=== PATIENT | female | born 1990 ===

== ENCOUNTER 2017-12-15 20:13 | Emergency (ER) | payer MEDICAID ==
[2017-12-15 20:14] VITALS: BMI 29.6
[2017-12-15 20:29] VITALS: BP 123/76; PULSE 98; RESP 20; TEMP 99.8; O2SAT 96
--- NOTE | 2017-12-15 21:44 | C.PDOC ---
History Of Present Illness 27 y/o female presents to the ED with c/o 1 day of "on and off" fever associated with myaglias, dry cough, and rhinorrhea. Tmax was up to 103 as per patient. Otherwise she denies any nausea, vomiting, diarrhea, SOB, chest tightness, or sputum production. No sick contacts. HPI: Influenza Time Seen by Provider: 12/15/17 20:48 Chief Complaint: Flu-like Symptoms Chief Complaint (Provider): Flu-like Symptoms History Per: Patient Exam Limitations: no limitations Onset/Duration Of Symptoms: Days Symptoms include: fever, bodyaches, cough, nasal congestion Sick Contacts (Context): None Past Medical History Reviewed: Historical Data, Nursing Documentation, Vital Signs Vital Signs: Last Vital Signs Temp 99.8 F H 12/15/17 20:27 Pulse 98 H 12/15/17 20:27 Resp 20 12/15/17 20:27 BP 123/76 12/15/17 20:27 Pulse Ox 96 12/15/17 20:27 - [facility] Procedures BILAT TUBAL DESTRUCT NEC (08/11/13) INJECT RH IMMUNE GLOBUL (08/11/13) LOW CERVICAL (08/11/13) Family History: States: No Known Family Hx - Social History Hx Alcohol Use: No Hx Substance Use: No Review Of Systems Constitutional: Positive for: Fever, Other (Myaglias) ENT: Positive for: Nose Discharge, Nose Congestion Cardiovascular: Negative for: Chest Pain, Light Headedness Respiratory: Positive for: Cough. Negative for: Shortness of Breath, Sputum, Wheezing Gastrointestinal: Negative for: Nausea, Vomiting, Diarrhea Musculoskeletal: Negative for: Back Pain Neurological: Negative for: Headache, Dizziness Physical Exam - Physical Exam Appears: Non-toxic, No Acute Distress Skin: Normal Color, Warm, Dry Head: Normacephalic Eye(s): bilateral: PERRL Ear(s): Bilateral: Normal Nose: Discharge (+ clear rhinorrhea) Oral Mucosa: Moist Neck: Normal ROM, Supple Chest: Symmetrical Cardiovascular: Rhythm Regular, No Murmur Respiratory: Normal Breath Sounds, No Rales, No Rhonchi, No Wheezing Extremity: Bilateral: Atraumatic, Normal Color And Temperature Neurological/Psych: Oriented x3, Normal Speech Medical Decision Making Medical Decision Making: Impression: pt with fever, flu like symptoms body aches and rhinorrhea. Flu neg. Plan: d/c home with tylenol and claritin - ECG O2 Sat by Pulse Oximetry: 96 Disposition Counseled Patient/Family Regarding: Studies Performed, Diagnosis, Need For Followup, Rx Given - Disposition Referrals: Joshua Hunt MD [Staff Provider] - Disposition: HOME/ ROUTINE Disposition Time: 21:41 Condition: GOOD Additional Instructions: Drink increased fluids. Calritin to decrease nasal secretions Tylenol for fever and pain. Follow up with Dr Hunt in 2-3 days. Increase rest. Prescriptions: Acetaminophen [Tylenol 325mg tab] 650 mg PO Q4 #50 tab Loratadine [Claritin] 10 mg PO DAILY #14 tab Instructions: Flu, Adult (DC) Forms: General Discharge Instructions, [facility] ([place]), Work Excuse - Clinical Impression Clinical Impression: Influenza-like illness - PA / [employer] / Resident Statement MD/DO has reviewed & agrees with the documentation as recorded. - Scribe Statement The provider has reviewed the documentation as recorded by the Scribe (Edna Hilliard) All medical record entries made by the Scribe were at my direction and personally dictated by me. I have reviewed the chart and agree that the record accurately reflects my personal performance of the history, physical exam, medical decision making, and the department course for this patient. I have also personally directed, reviewed, and agree with the discharge instructions and disposition.
== END 2017-12-15 21:55 | disposition home or self-care (01) ==
LOC: C.ER 20:13
DX: J11.1 Influenza due to unidentified influenza virus with other respiratory manifestations (principal)

== ENCOUNTER 2018-04-16 21:02 | Emergency (ER) | payer SELFPAY ==
[2018-04-16 21:02] VITALS: BMI 29.6
[2018-04-16 21:26] VITALS: BP 128/88; PULSE 88; RESP 20; TEMP 98.8; O2SAT 98
--- NOTE | 2018-04-16 22:07 | C.PDOC ---
History Of Present Illness 27-year-old female, with no significant past medical history, presents to the ED for evaluation of flu-like symptoms for one day. Patient reports fever, chills, sore throat, headache, generalized body aches, dry cough, and sinus congestion. She denies getting the flu shot this season. Patient took Tylenol cold/flu prior to arrival with some relief. She denies abdominal pain, nausea, sputum production, dizziness, vision changes, neck pain/stiffness, back pain and chest pain. Time Seen by Provider: 04/16/18 21:41 Chief Complaint (Nursing): Flu-like Symptoms History Per: Patient History/Exam Limitations: no limitations Onset/Duration Of Symptoms: Hrs Current Symptoms Are (Timing): Still Present Location Of Pain: Throat, Diffuse Myalgias, Headache Associated Symptoms: Fever, Chills, Cough. denies: Sputum, Neck Pain, Nausea, Vomiting Additional History Per: Patient Past Medical History Reviewed: Historical Data, Nursing Documentation, Vital Signs Vital Signs: Last Vital Signs Temp 98.8 F 04/16/18 21:21 Pulse 88 04/16/18 21:21 Resp 20 04/16/18 21:21 BP 128/88 04/16/18 21:21 Pulse Ox 98 04/16/18 21:21 - Medical History PMH: No Chronic Diseases Surgical History: No Surg Hx - [facility] Procedures BILAT TUBAL DESTRUCT NEC (08/11/13) INJECT RH IMMUNE GLOBUL (08/11/13) LOW CERVICAL (08/11/13) Family History: States: Unknown Family Hx - Social History Hx Alcohol Use: No Hx Substance Use: No - Immunization History Hx Tetanus Toxoid Vaccination: No Hx Influenza Vaccination: No Hx Pneumococcal Vaccination: No Review Of Systems Constitutional: Positive for: Fever, Chills Eyes: Negative for: Vision Change, Redness ENT: Positive for: Throat Pain, Other (sinus congestion ). Negative for: Ear Pain Cardiovascular: Negative for: Chest Pain, Palpitations, Light Headedness Respiratory: Positive for: Cough. Negative for: Shortness of Breath, Sputum Gastrointestinal: Positive for: Nausea. Negative for: Vomiting, Abdominal Pain, Diarrhea Musculoskeletal: Positive for: Other (generalized body aches ). Negative for: Neck Pain, Back Pain Skin: Negative for: Rash Neurological: Positive for: Headache. Negative for: Weakness, Numbness, Seizures, Dizziness Physical Exam - Physical Exam Appears: Non-toxic, No Acute Distress Skin: Normal Color, Warm, Dry Head: Atraumatic, Normacephalic Eye(s): bilateral: Normal Inspection, PERRL, EOMI Ear(s): Bilateral: Normal Nose: Normal, No Discharge Oral Mucosa: Moist Throat: Normal, No Erythema, No Exudate Neck: Supple Chest: Symmetrical, No Deformity, No Tenderness Cardiovascular: Rhythm Regular, No Murmur Respiratory: Normal Breath Sounds, No Rales, No Rhonchi, No Wheezing Gastrointestinal/Abdominal: Soft, No Tenderness, No Guarding, No Rebound Extremity: Normal ROM, Capillary Refill (less than 2 seconds ) Pulses: Left Radial: Normal, Right Radial: Normal Neurological/Psych: Oriented x3, Normal Speech, Normal Cognition, Normal Motor, Normal Sensation Gait: Steady ED Course And Treatment O2 Sat by Pulse Oximetry: 98 (on RA) Pulse Ox Interpretation: Normal Medical Decision Making Medical Decision Making: Pt with flu-like symptoms for 1 day; fever, chills, bodyaches, nausea, headache; without dizziness, vomiting or head injury Progress: Will treat empirically for flu given lack of flu shot and presentation consistent with flu-like symptoms and normal PE. Tamiflu PO given. Advised PMD followup tomorrow. Diagnostic testing results and plan of care discussed with patient. Strict instructions given regarding prescription use, importance of followup, and signs/symptoms to return to ER including chest pain, SOB, abdominal pain, or any other new/worsening symptoms. Pt verbalized understanding of discussion. Patient is A&Ox3, ambulating with steady gait, with vital signs stable for discharge. Disposition - Disposition Referrals: [facility] [Outside] Disposition: HOME/ ROUTINE Disposition Time: 21:55 Condition: STABLE Additional Instructions: Tamiflu every 12 hours for 5 days, 9 more doses Increase fluids Rest, no strenuous activity Ibuprofen/motrin for pain Followup with primary doctor tomorrow Return to ER with any new/worsening symptoms Prescriptions: Benzonatate [Tessalon Perle] 200 mg PO Q8H PRN #21 capsule PRN Reason: Cough Oseltamivir Cap [Tamiflu] 75 mg PO Q12 #9 cap Instructions: Flu, Adult (DC) Forms: General Discharge Instructions, [facility] ([place]), Work Excuse - Clinical Impression Clinical Impression: Influenza-like illness - PA / [employer] / Resident Statement MD/DO has reviewed & agrees with the documentation as recorded. - Scribe Statement The provider has reviewed the documentation as recorded by the Scribe (Vivian Lassiter) All medical record entries made by the Scribe were at my direction and personally dictated by me. I have reviewed the chart and agree that the record accurately reflects my personal performance of the history, physical exam, medical decision making, and the department course for this patient. I have also personally directed, reviewed, and agree with the discharge instructions and disposition.
== END 2018-04-16 22:11 | disposition home or self-care (01) ==
LOC: C.ER 21:02
DX: J11.1 Influenza due to unidentified influenza virus with other respiratory manifestations (principal)